=== PATIENT | male | born 1960 | race Caucasian/White ===

== ENCOUNTER → 2019-08-29 13:12 | Outpatient (CLI) | payer MEDICARE, BC | END | disposition home or self-care (01) | LOC: D.RAD 13:12 | PROVIDERS: ATTEND Anesthesiology | DX: M54.5 Low back pain (principal); M47.817 Spondylosis without myelopathy or radiculopathy, lumbosacral region; M54.6 Pain in thoracic spine; M47.814 Spondylosis without myelopathy or radiculopathy, thoracic region; M54.2 Cervicalgia; M50.30 Other cervical disc degeneration, unspecified cervical region; G89.4 Chronic pain syndrome; Z79.899 Other long term (current) drug therapy; Z79.891 Long term (current) use of opiate analgesic ==